=== PATIENT | male | born 1945 | race Caucasian/White ===

== ENCOUNTER → 2020-05-12 | Outpatient (CLI) | payer MEDICARE ==
[~2020-05-12] MED LIST: OMNIPAQUE 350 MG/ML, 150 ML BOTTLE ONE
== END | disposition home or self-care (01) ==
LOC: CFH 14:04
PROVIDERS: ATTEND Internal Medicine Cardiovascular Disease
DX: I48.91 Unspecified atrial fibrillation (principal)
CPT/HCPCS: 71046; 75572; Q9967

== ENCOUNTER → 2020-05-12 | Outpatient (CLI) | payer MEDICARE | END | disposition home or self-care (01) | LOC: STAR 13:53 | PROVIDERS: ATTEND Internal Medicine Cardiovascular Disease | DX: Z20.828 Contact with and (suspected) exposure to other viral communicable diseases (principal) | CPT/HCPCS: 87635 ==

== ENCOUNTER 2020-05-17 06:16 | Inpatient (IN) | payer MEDICARE ==
[~2020-05-17] VITALS: Ht 185.4 cm; Wt 100.0 kg
[2020-05-17 06:56] VITALS: BP 150/94
[2020-05-17] MEDS ORDERED: SODIUM CHLORIDE 0.9% 1,000 ML IV SCH (07:00)
[2020-05-17] MEDS ORDERED: SODIUM CHLORIDE 0.9% 1,000 ML IV ONE ×2 (07:00)
[2020-05-17] MEDS ORDERED: PLEASE ENTER ALLERGIES MC SCH (07:00)
[2020-05-17] MEDS ORDERED: LIDOCAINE 2%, 20ML ONE (07:01)
[2020-05-17] MEDS ORDERED: AMLO-150 PO (07:08)
[2020-05-17] MEDS ORDERED: METO50TA82 PO (07:08)
[2020-05-17] MEDS ORDERED: RIVA20TA PO (07:08)
[2020-05-17] MEDS ORDERED: L.AC1CAP6 PO (07:08)
[2020-05-17] MEDS ORDERED: CHOL40002 PO (07:08)
[2020-05-17] MEDS ORDERED: MULT-717 PO (07:08)
[2020-05-17] MEDS ORDERED: OMEG1CAP23 PO (07:08)
[2020-05-17] MEDS ORDERED: OMEP-110 PO (07:08)
[2020-05-17] MEDS ORDERED: LOSA25TA25 PO (07:08)
[2020-05-17] MEDS ORDERED: FINA5TAB4 PO (07:08)
[2020-05-17] MEDS ORDERED: ALPR0.254 PO (07:08)
[2020-05-17] MEDS ORDERED: LEVO50TA5 PO (07:08)
[2020-05-17] MEDS ORDERED: VITA1CAP PO (07:08)
[2020-05-17] MEDS ORDERED: Areds 2 PO (07:08)
[2020-05-17 07:18] LABS: BASOPHILS % (AUTO) 1 % (0-1); EOSINOPHILS % (AUTO) 1 % (1-7); LYMPHOCYTES % (AUTO) 30 % (22-44); MD NO; MEAN CORPUSCULAR HEMOGLOBIN 30.9 pg (27.5-34.5); MEAN CORPUSCULAR HGB CONC 34.1 g/dL (33.2-36.2); MEAN PLATELET VOLUME 7.4 fL (7.4-10.4); MONOCYTES % (AUTO) 11 % (2-9); NEUTROPHILS % (AUTO) 57 % (42-75); PLATELET COUNT 216 x10^3/uL (130-400); RED BLOOD COUNT 4.72 x10^6/uL (4.38-5.82); RED CELL DISTRIBUTION WIDTH 13.4 % (9.4-14.8)
[2020-05-17 07:22] LABS: CALCIUM 8.8 mg/dL (8.5-10.1); CHLORIDE 110 mmol/L (98-107); CREATININE 1.31 mg/dL (0.7-1.3)
[2020-05-17] MEDS ORDERED: FENTANYL PF 100 MCG/2ML ONE (07:31)
[2020-05-17] MEDS ORDERED: HEPARIN 1,000 UNITS/ML, 10ML ONE ×3 (07:34→09:49)
[2020-05-17 07:37] LABS: ANION GAP 3 mmol/L (5-15)
[2020-05-17 07:41] LABS: INTERNATIONAL NORMALIZED RATIO 1.06 (0.93-1.1); PROTHROMBIN TIME 11.2 Seconds (9.6-11.5)
[2020-05-17] MEDS ORDERED: DEXAMETHASONE 4 MG/ML, 1ML ONE (07:57)
[2020-05-17] MEDS ORDERED: OXYcodone 5 MG/5 ML ORAL.SOL UDC PO PRN (08:00)
[2020-05-17] MEDS ORDERED: hydrALAzine 20 MG/ML, 1ML IV PRN (08:00)
[2020-05-17] MEDS ORDERED: LABETALOL 5MG/ML, 20ML IV PRN (08:00)
[2020-05-17] MEDS ORDERED: FENTANYL PF 100 MCG/2ML IV PRN (08:00)
[2020-05-17] MEDS ORDERED: HYDROmorphone 1 MG/ML, 1ML INJ IVPush PRN (08:00)
[2020-05-17] MEDS ORDERED: ACETAMINOPHEN 325 MG TABLET PO PRN ×2 (08:00→13:30)
[2020-05-17] MEDS ORDERED: ONDANSETRON 2MG/ML, 2ML IVPush PRN (08:00)
[2020-05-17] MEDS ORDERED: PROMETHAZINE 25 MG/ML, 1ML IVPush PRN (08:00)
[2020-05-17] MEDS ORDERED: EPHEDRINE 50 MG/ML, 1ML IVPush PRN (08:00)
[2020-05-17] MEDS ORDERED: SUGAMMADEX 200 MG/2 ML IVPush ONE (08:14)
[2020-05-17] MEDS ORDERED: PHENYLEPHRINE 10 MG/ML ONE ×2 (08:23→09:44)
[2020-05-17] MEDS ORDERED: ONDANSETRON 2MG/ML, 2ML ONE ×2 (08:24→13:42)
[2020-05-17] MEDS ORDERED: SUCCINYLCHOLINE 20 MG/ML, 10ML ONE (08:24)
[2020-05-17] MEDS ORDERED: ROCURONIUM 10MG/ML,5ML ONE ×2 (08:24→12:18)
[2020-05-17] MEDS ORDERED: PROPOFOL 10 MG/ML, 20ML ONE (08:24)
[2020-05-17] MEDS ORDERED: EPINEPHRINE 1 MG/ML, 1ML ONE (09:45)
[2020-05-17] MEDS: RIVAROXABAN 20 MG TABLET PO SCH (13:36)
[2020-05-17] MEDS ORDERED: EPHEDRINE 50 MG/ML, 1ML ONE (13:57)
[2020-05-17 15:14] VITALS: BP 108/66
[2020-05-17 19:38] VITALS: BP 114/72
[2020-05-17] MEDS: COLCHICINE 0.6 MG CAPSULE PO SCH (20:43)
[2020-05-18 01:12] VITALS: BP 111/68
[2020-05-18] MEDS ORDERED: METOPROLOL TARTRATE 50 MG TAB PO SCH (06:00)
[2020-05-18] MEDS: OMEPRAZOLE 20 MG CAPSULE.DR PO SCH (06:02)
[2020-05-18] MEDS: LEVOTHYROXINE 50 MCG TABLET PO SCH (06:02)
[2020-05-18 06:03] VITALS: BP 101/65
[2020-05-18 06:54] VITALS: BP 101/63
[2020-05-18] MEDS: FINASTERIDE 5 MG TABLET PO SCH (08:50)
[2020-05-18] MEDS: AMLODIPINE 5 MG TABLET PO SCH (08:53)
[2020-05-18] MEDS: LOSARTAN 100 MG TAB PO SCH (08:54)
[2020-05-18] MEDS: COLCHICINE 0.6 MG CAPSULE PO SCH ×2 (08:54→20:02)
[2020-05-18] MEDS: RIVAROXABAN 20 MG TABLET PO SCH (08:55)
[2020-05-18] MEDS ORDERED: RIVAROXABAN 20 MG TABLET PO SCH (09:00)
[2020-05-18] MEDS: SOTALOL 80MG TABLET PO SCH ×2 (10:19→18:20)
[2020-05-18 12:07] VITALS: BP 107/66
[2020-05-18 19:50] VITALS: BP 109/67
[2020-05-19 03:50] VITALS: BP 101/64
[2020-05-19] MEDS: OMEPRAZOLE 20 MG CAPSULE.DR PO SCH (06:13)
[2020-05-19] MEDS: LEVOTHYROXINE 50 MCG TABLET PO SCH (06:13)
[2020-05-19] MEDS: SOTALOL 80MG TABLET PO SCH (06:13)
[2020-05-19 06:16] VITALS: BP 112/71
[2020-05-19 07:38] VITALS: BP 123/74
[2020-05-19 08:02] LABS: ANION GAP 3 mmol/L (5-15); CALCIUM 8.2 mg/dL (8.5-10.1); CHLORIDE 112 mmol/L (98-107); CREATININE 1.14 mg/dL (0.7-1.3)
[2020-05-19] MEDS ORDERED: SOTA80TA18 PO (08:20)
[2020-05-19] MEDS: LOSARTAN 100 MG TAB PO SCH (08:28)
[2020-05-19] MEDS: RIVAROXABAN 20 MG TABLET PO SCH (08:28)
[2020-05-19] MEDS: COLCHICINE 0.6 MG CAPSULE PO SCH (08:28)
[2020-05-19] MEDS: AMLODIPINE 5 MG TABLET PO SCH (08:28)
[2020-05-19] MEDS: FINASTERIDE 5 MG TABLET PO SCH (08:29)
[2020-05-19] MEDS ORDERED: COLC0.6C3 PO (10:39)
[2020-05-19 13:54] VITALS: BP 112/60
== END 2020-05-19 15:10 | disposition home or self-care (01) | DRG 274 ==
LOC: CACL 06:16 → OBSVTOIN 13:10 → ORIP 13:10 → 5SO 15:13 → DCLOUNGE 05-19 14:58
PROVIDERS: ADMIT Internal Medicine Cardiovascular Disease; ATTEND Internal Medicine Cardiovascular Disease
PROC: 02K83ZZ Map Conduction Mechanism, Percutaneous Approach (ICD-10-PCS; 2020-05-17)
PROC: 4A0234Z Measurement of Cardiac Electrical Activity, Percutaneous Approach (ICD-10-PCS; 2020-05-17)
PROC: B246ZZZ Ultrasonography of Right and Left Heart (ICD-10-PCS; 2020-05-17)
PROC: 02583ZZ Destruction of Conduction Mechanism, Percutaneous Approach (ICD-10-PCS; principal; 2020-05-17 08:00)
DX: I48.0 Paroxysmal atrial fibrillation (principal); D68.69 Other thrombophilia; I48.4 Atypical atrial flutter; I27.20 Pulmonary hypertension, unspecified; K21.9 Gastro-esophageal reflux disease without esophagitis; E03.9 Hypothyroidism, unspecified; I07.1 Rheumatic tricuspid insufficiency; I10 Essential (primary) hypertension; I77.810 Thoracic aortic ectasia; N52.9 Male erectile dysfunction, unspecified; Z79.01 Long term (current) use of anticoagulants; I95.9 Hypotension, unspecified; Z88.1 Allergy status to other antibiotic agents
CPT/HCPCS: 36415; 76937; 80048; 85025; 85347; 85610; 85730; 93005; 93306; 93312; 93321; 93325; 93613; 93655; 93656; 93657; 93662; C1732; C1766; C1893; C1894; G0378; J0171; J1100; J1644; J2405; J2704; J3010; C1730; C1759; J0330; J2370; J7030

== ENCOUNTER 2020-07-29 13:40 | Day surgery (SDC) | payer MEDICARE ==
[~2020-07-29] VITALS: Ht 182.9 cm; Wt 90.9 kg
[~2020-07-29 13:40] MED LIST changes: +ALPR0.254 PO; +AMLO-150 PO; +Areds 2 PO; +CHOL40002 PO; +COLC0.6C3 PO; +FINA5TAB4 PO; +L.AC1CAP6 PO; +LEVO50TA5 PO; +LOSA25TA25 PO; +METO50TA82 PO; +MULT-717 PO; +OMEG1CAP23 PO; +OMEP-110 PO; -OMNIPAQUE 350 MG/ML, 150 ML BOTTLE ONE; +RIVA20TA PO; +SOTA80TA18 PO; +VITA1CAP PO
[2020-07-29 14:09] VITALS: BP 152/104
[2020-07-29] MEDS ORDERED: SILD100T PO (14:20)
[2020-07-29] MEDS ORDERED: METO50TA82 PO (14:20)
[2020-07-29] MEDS ORDERED: FLEC50TA25 PO (14:20)
[2020-07-29 14:33] LABS: ANION GAP 5 mmol/L (5-15); CALCIUM 8.9 mg/dL (8.5-10.1); CHLORIDE 108 mmol/L (98-107); CREATININE 1.17 mg/dL (0.7-1.3)
[2020-07-29] MEDS ORDERED: PROPOFOL 10 MG/ML, 20ML ONE (15:19)
== END 2020-07-29 16:08 | disposition home or self-care (01) ==
LOC: CACL 13:40
PROVIDERS: ATTEND Internal Medicine Cardiovascular Disease
DX: I48.92 Unspecified atrial flutter (principal); I48.91 Unspecified atrial fibrillation; Z88.1 Allergy status to other antibiotic agents; Z79.899 Other long term (current) drug therapy; Z79.01 Long term (current) use of anticoagulants
CPT/HCPCS: 36415; 80048; 92960; J2704